=== PATIENT | female | born 1990 | race African-American/Black ===

== ENCOUNTER 2022-02-18 04:14 | Day surgery (SDC) | payer OTHER ==
[2022-02-13 11:58] VITALS: BMI 37.8
[2022-02-18] MEDS ORDERED: MIDAZOLAM HCL 2 MG/2 ML SINGLE DOSE VIAL ONE (10:12)
[2022-02-18] MEDS ORDERED: PROPOFOL 20 ML ONE ×2 (10:13)
[2022-02-18] MEDS ORDERED: LIDOCAINE HCL 1%, 10 MG/ML (20ML VIAL) NR ONE ×3 (11:04→11:15)
[2022-02-18] MEDS ORDERED: ACETAMINOPHEN INJECTION 100 ML IVPB ONE (11:11)
[2022-02-18 13:13] VITALS: PULSE 90
[2022-02-18] MEDS ORDERED: oxyCODONE HCL 5 MG TABLET ONE (14:18)
[2022-02-18] MEDS ORDERED: oxyCODONE HCL 5 MG TABLET PO PRN (14:54)
[2022-02-18 15:09] VITALS: BP 136/94; TEMP 98.2
== END 2022-02-18 15:08 | disposition home or self-care (01) ==
LOC: JASU-SURG 04:14
PROVIDERS: ATTEND Surgery
PROC: 0HBU0ZX Excision of Left Breast, Open Approach, Diagnostic (ICD-10-PCS; principal; 2022-02-18 11:00)
DX: D24.1 Benign neoplasm of right breast (principal)
CPT/HCPCS: 81025; 88307-TC; 94760